=== PATIENT | male | born 1955 | race African-American/Black ===

== ENCOUNTER 2022-08-05 09:54 | Emergency (ER) | payer MEDICARE ==
[2022-08-05] MEDS ORDERED: Meclizine HCl 25 MG TAB ONE (10:13)
[2022-08-05 10:34] LABS: #Basophils 0.1 10x3/uL (0.0-0.2); #Eosinphils 0.2 10x3/uL (0.0-0.5); #Monocytes 0.4 10x3/uL (0.0-1.1); #Neutrophils 3.3 10x3/uL (1.5-8.4); %Basophils 1.7 % (0.0-2.0); %Eosinophils 3.5 % (0.0-6.0); %Lymphocytes 26.2 % (18.0-47.0); %Monocytes 7.3 % (0.0-10.0); %Neutrophils 60.9 % (40.0-75.0); Hemoglobin 14.4 g/dL (13.5-17.5); Mean Corpuscular HGB CONC 35.6 g/dL (32.0-36.0); Mean Corpuscular Hemoglobin 30.6 pg (27.0-33.0); Mean Corpuscular Volume 86.2 fl (81.2-95.1); Mean Platelet Volume 11.8 fl (7.4-10.4); Platelet Count 283 10x3/uL (150-450); RBC Distribution Width 12.8 % (11.5-14.5); White Blood Cell (WBC) Count 5.5 10x3/uL (3.5-10.5)
[2022-08-05 11:06] LABS: ALT (SGPT) 11 U/L (8-55); AST (SGOT) 18 U/L (5-34); Albumin 3.4 g/dL (3.4-4.8); Alkaline Phosphatase 115 U/L (40-110); Anion Gap 16 mmol/L (10-20); BUN (Urea Nitrogen) 17 mg/dL (8.4-25.7); Bilirubin, Total 0.3 mg/dL (0.2-1.2); Calc. Creatinine Clearance 0 mL/min (70-130); Calcium 9.3 mg/dL (7.8-10.44); Carbon Dioxide 24 mmol/L (23-31); Chloride 91 mmol/L (98-107); Estimated GFR 59; Globulin 5.3 g/dL (2.4-3.5); Glucose 495 mg/dL (80-115); Potassium 4.7 mmol/L (3.5-5.1); Protein, Total 8.7 g/dL (5.8-8.1); Sodium 126 mmol/L (136-145)
[2022-08-05 11:39] LABS: Bilirubin Neg (Negative); Blood, Urine Negative (Negative); Clarity Clear (Clear); Glucose, Urine (Dipstick) >=1000 mg/dL (Negative); Ketone, Urine 5 mg/dL (Negative); Leukocyte Negative (Negative); Nitrite Negative (Negative); Protein, Urine (Dipstick) Negative (Neg-Trace); Urobilinogen Normal mg/dL (Less than 2)
== END 2022-08-05 12:59 | disposition home or self-care (01) ==
LOC: CSHERS 09:54
DX: R73.9 Hyperglycemia, unspecified (principal); F17.200 Nicotine dependence, unspecified, uncomplicated; I10 Essential (primary) hypertension; M10.9 Gout, unspecified; Z79.899 Other long term (current) drug therapy
CPT/HCPCS: 70450; 71045; 80053; 81003; 83880; 84443; 84484; 85025; 93005; 94760; 96360

== ENCOUNTER 2024-05-02 09:49 | Inpatient (IN) | payer MEDICARE ==
[2024-05-02] MEDS ORDERED: HYDROcodone/Acetaminophen 5/325 mg Tablet ONE (10:14)
[2024-05-02] MEDS ORDERED: Ketorolac Tromethamine 30 MG (1 mL) VIAL ONE (12:26)
[2024-05-02 13:44] LABS: #Basophils 0.15 10x3/uL (0.0-0.2); #Eosinphils 0.49 10x3/uL (0.0-0.5); #Monocytes 0.71 10x3/uL (0.0-1.1); #Neutrophils 4.63 10x3/uL (1.5-8.4); %Basophils 1.9 % (0.0-2.0); %Eosinophils 6.1 % (0.0-6.0); %Lymphocytes 25.7 % (18.0-47.0); %Monocytes 8.8 % (0.0-10.0); %Neutrophils 57.3 % (40.0-75.0); Hematocrit 47.1 % (38.8-50.0); Hemoglobin 15.6 g/dL (13.5-17.5); Mean Corpuscular HGB CONC 33.1 g/dL (32.0-36.0); Mean Corpuscular Hemoglobin 29.5 pg (27.0-33.0); Mean Platelet Volume 9.5 fL (7.4-10.4); Platelet Count 602 10x3/uL (150-450); Red Blood Cell (RBC) Count 5.29 10x6/uL (4.32-5.72); White Blood Cell (WBC) Count 8.1 10x3/uL (3.5-10.5)
[2024-05-02 13:54] LABS: ALT (SGPT) 13 U/L (8-55); AST (SGOT) 16 U/L (5-34); Albumin 3.1 g/dL (3.4-4.8); Alkaline Phosphatase 81 U/L (40-110); Anion Gap 15 mmol/L (10-20); BUN (Urea Nitrogen) 24 mg/dL (8.4-25.7); Bilirubin, Total 0.3 mg/dL (0.2-1.2); Calc. Creatinine Clearance 0 mL/min (70-130); Calcium 9.4 mg/dL (7.8-10.44); Carbon Dioxide 20 mmol/L (23-31); Chloride 109 mmol/L (98-107); Estimated GFR 59; Globulin 3.3 g/dL (2.4-3.5); Glucose 133 mg/dL (80-115); Potassium 4.6 mmol/L (3.5-5.1); Protein, Total 6.4 g/dL (5.8-8.1); Sodium 139 mmol/L (136-145)
[2024-05-02 14:00] LABS: Troponin I Less than 0.010 ng/mL (< 0.028)
[2024-05-02 15:43] LABS: Bilirubin Neg (Negative); Blood, Urine Negative (Negative); Clarity Clear (Clear); Glucose, Urine (Dipstick) Normal (Negative); Ketone, Urine Negative (Negative); Leukocyte Negative (Negative); Nitrite Negative (Negative); Protein, Urine (Dipstick) 15 mg/dl (Neg-Trace); Specific Gravity, Urine 1.025 (1.005-1.030); Urobilinogen Normal mg/dL (Less than 2)
[2024-05-02 15:49] LABS: Bacteria/HPF Rare-Few HPF (None Seen); CAUTI Indications for Culture Pelvic or flank pain; RBC/HPF 0-3 HPF (0-3); WBC/HPF 0-3 HPF (0-3)
[2024-05-02 15:50] LABS: Mucous/LPF Rare LPF (<2+); Sperm/HPF Rare HPF (None Seen); Urine Culture Reflex No No
[2024-05-02] MEDS ORDERED: Acetaminophen 325 MG TAB PO PRN (17:59)
[2024-05-02] MEDS ORDERED: Senokot S 8.6-50 MG TAB PO PRN (17:59)
[2024-05-02] MEDS ORDERED: Glucagon 1 MG/ML KIT IM PRN (18:01)
[2024-05-02] MEDS ORDERED: Dextrose 50% Abboject 50 ML SYRINGE SLOW IVP PRN (18:01)
[2024-05-02] MEDS ORDERED: Dextrose 5% in Water 1,000 ML IV PRN (18:01)
[2024-05-02 21:18] VITALS: BMI 43.1
[2024-05-02] MEDS: Famotidine 20 MG TAB PO SCH (21:38)
[2024-05-02] MEDS: Insulin Regular 300 UNITS/3 ML VIAL SC PRN (21:39)
[2024-05-02] MEDS: HYDROcodone/Acetaminophen 5/325 mg Tablet PO PRN (22:46)
[2024-05-02] MEDS: Gabapentin 400 MG CAP PO SCH (23:24)
[2024-05-02] MEDS: tiZANidine HCl 4 MG TAB PO SCH (23:25)
[2024-05-03] MEDS ORDERED: Carvedilol 12.5 MG TAB PO SCH (09:30)
[2024-05-03] MEDS: Enoxaparin 40 MG (0.4 mL) SYRINGE SC SCH (10:23)
[2024-05-03] MEDS: Carvedilol 12.5 MG TAB PO SCH ×2 (10:24→16:32)
[2024-05-03] MEDS: Gabapentin 300 MG CAP PO SCH (14:48)
[2024-05-03] MEDS: Atorvastatin Calcium 40 MG TAB PO SCH (20:40)
[2024-05-03] MEDS: HYDROcodone/Acetaminophen 5/325 mg Tablet PO PRN (20:43)
[2024-05-04] MEDS ORDERED: Carvedilol 12.5 MG TAB PO SCH (09:00)
[2024-05-04] MEDS: Allopurinol 300 MG TAB PO SCH (10:06)
[2024-05-04] MEDS: Aspirin 81 mg Enteric Coated Tablet PO SCH (10:06)
[2024-05-04 12:43] VITALS: TEMP 97.8
[2024-05-04 13:10] VITALS: BP 113/70
== END 2024-05-04 14:00 | DRG 948 ==
LOC: CSHERS 09:49 → CSHTELE 17:41
PROVIDERS: ADMIT Family Medicine; ATTEND Family Medicine
DX: R53.1 Weakness (principal); I50.22 Chronic systolic (congestive) heart failure; I42.0 Dilated cardiomyopathy; Z68.41 Body mass index [BMI] 40.0-44.9, adult; R29.6 Repeated falls; I11.0 Hypertensive heart disease with heart failure; E11.9 Type 2 diabetes mellitus without complications; M25.461 Effusion, right knee; M10.9 Gout, unspecified; E66.01 Morbid (severe) obesity due to excess calories; E78.5 Hyperlipidemia, unspecified; Z88.0 Allergy status to penicillin; Z79.82 Long term (current) use of aspirin; Z79.899 Other long term (current) drug therapy; Z98.890 Other specified postprocedural states; Z95.810 Presence of automatic (implantable) cardiac defibrillator; Z87.891 Personal history of nicotine dependence
CPT/HCPCS: 36415; 36416; 72131; 80053; 81001; 83605; 83880; 84484; 85025; 93005; 93306; 96372; J1650; J1815; J1885

== ENCOUNTER 2024-10-12 11:17 | Emergency (ER) | payer MEDICARE, SELFPAY ==
[2024-10-12 12:08] LABS: #Basophils 0.15 10x3/uL (0.0-0.2); #Eosinophils 0.45 10x3/uL (0.0-0.5); #Monocytes 0.51 10x3/uL (0.0-1.1); #Neutrophils 3.67 10x3/uL (1.5-8.4); %Basophils 2.2 % (0.0-2.0); %Eosinophils 6.6 % (0.0-6.0); %Lymphocytes 29.9 % (18.0-47.0); %Monocytes 7.5 % (0.0-10.0); %Neutrophils 53.7 % (40.0-75.0); Hematocrit 41.5 % (38.8-50.0); Hemoglobin 13.3 g/dL (13.5-17.5); Mean Corpuscular Hemoglobin 29.3 pg (27.0-33.0); Mean Corpuscular Volume 91.4 fL (81.2-95.1); Mean Platelet Volume 9.3 fL (7.4-10.4); Platelet Count 597 10x3/uL (150-450); RBC Distribution Width 14.3 % (11.5-14.5); Red Blood Cell (RBC) Count 4.54 10x6/uL (4.32-5.72); White Blood Cell (WBC) Count 6.8 10x3/uL (3.5-10.5)
[2024-10-12 12:22] LABS: ALT (SGPT) 9 U/L (8-55); AST (SGOT) 13 U/L (5-34); Alkaline Phosphatase 98 U/L (40-110); Anion Gap 12 mmol/L (10-20); BUN (Urea Nitrogen) 18 mg/dL (8.4-25.7); Bilirubin, Total 0.2 mg/dL (0.2-1.2); Calc. Creatinine Clearance 0 mL/min (70-130); Calcium 9.4 mg/dL (7.8-10.44); Carbon Dioxide 28 mmol/L (23-31); Chloride 104 mmol/L (98-107); Estimated GFR 60; Globulin 3.6 g/dL (2.4-3.5); Glucose 204 mg/dL (80-115); Potassium 4.3 mmol/L (3.5-5.1); Protein, Total 6.6 g/dL (5.8-8.1); Sodium 140 mmol/L (136-145)
[2024-10-12 12:25] LABS: Troponin I Less than 0.010 ng/mL (< 0.028)
[2024-10-12] MEDS ORDERED: Furosemide 40 MG (4 mL) VIAL ONE (13:12)
== END 2024-10-12 13:44 | disposition home or self-care (01) ==
LOC: CSHERS 11:17
DX: E87.70 Fluid overload, unspecified (principal); I11.0 Hypertensive heart disease with heart failure; I50.9 Heart failure, unspecified; F17.200 Nicotine dependence, unspecified, uncomplicated; Z79.899 Other long term (current) drug therapy
CPT/HCPCS: 71045; 80053; 83880; 84484; 85025; 93005; 93010; J1940